=== PATIENT | male | born 1975 | race Caucasian/White ===

== ENCOUNTER 2020-07-15 17:26 | Emergency (ER) | payer OTHER ==
[~2020-07-15] VITALS: Ht 182.9 cm; Wt 9.1 kg
[2020-07-15] MEDS ORDERED: HYDR-3965 PO (19:55)
[2020-07-15] MEDS ORDERED: HYDROcodone/acetaminophen 5mg/325mg tablet PO ONE (19:55)
--- NOTE | 2020-07-15 20:00 | NUR ---
MIGUEL HAS ROAD RASH TO HIS RIGHT ELBOW. TECH CLEANED AND DRESSED WOUND NOTED BY TECH
[2020-07-15 20:18] VITALS: BP 115/61
== END 2020-07-15 20:33 | disposition home or self-care (01) ==
LOC: ER 17:27
DX: S62.232A Other displaced fracture of base of first metacarpal bone, left hand, initial encounter for closed fracture (principal); Z79.899 Other long term (current) drug therapy; V19.9XXA Pedal cyclist (driver) (passenger) injured in unspecified traffic accident, initial encounter; Y93.55 Activity, bike riding; Y92.89 Other specified places as the place of occurrence of the external cause; Y99.8 Other external cause status
CPT/HCPCS: 29125; 73130; 99283